=== PATIENT | female | born 1965 | race Caucasian/White ===

== ENCOUNTER → 2021-11-16 15:13 | Outpatient (BNVA) | payer OTHER, SELFPAY | PROVIDERS: Family Provider Family Medicine; PCP Family Medicine; Visit Provider Family Medicine | DX: Z00.00 Encounter for general adult medical examination without abnormal findings (principal) | CPT/HCPCS: 80053; 85025 ==

== ENCOUNTER → 2021-12-02 13:48 | Outpatient (BNVA) | payer OTHER, SELFPAY | PROVIDERS: Family Provider Family Medicine; PCP Family Medicine; Visit Provider Nurse Practitioner Women's Health | DX: Z01.419 Encounter for gynecological examination (general) (routine) without abnormal findings (principal) | CPT/HCPCS: 87624 ==

== ENCOUNTER → 2021-12-04 09:58 | Outpatient (BNVA) | payer OTHER, SELFPAY | PROVIDERS: Family Provider Family Medicine; PCP Family Medicine; Visit Provider Family Medicine | DX: Z00.00 Encounter for general adult medical examination without abnormal findings (principal) | CPT/HCPCS: 85025 ==

== ENCOUNTER 2021-12-11 10:09 | Outpatient (CLI) | payer OTHER, SELFPAY ==
--- NOTE | 2021-12-11 10:16 | MM_ITS ---
WS: [id number] BILATERAL SCREENING DIGITAL BREAST MAMMOGRAPHY WITH LEANDRO DISPLACEMENT VIEWS. CAD PERFORMED. HISTORY: SCREENING COMPARISON: 03/14/2017 and 01/13/2010 Bilateral craniocaudal and mediolateral oblique views are performed with tomosynthesis and SM. Leandro displacement views in CC and MLO projection also performed. Breasts composition: There are scattered areas of fibroglandular density. Numerous calcifications in the anterior lateral RIGHT breast are stable since 2017. No significant progression of calcification s. Breast implants are intact. No extravasation. No collapse. MM/[place] [id number] IMPRESSION: BI-RADS: 2-Benign FOLLOW-UP: 1 Year Follow-up
== END 2021-12-11 10:10 | disposition home or self-care (01) ==
LOC: RAD 10:10
PROVIDERS: PCP Family Medicine; Visit Provider Family Medicine
DX: Z12.31 Encounter for screening mammogram for malignant neoplasm of breast (principal)
CPT/HCPCS: 77063; 77067

== ENCOUNTER 2022-01-04 05:56 | Day surgery (SDC) | payer OTHER, SELFPAY ==
[2021-12-31 12:38] VITALS: BMI 26.6
[2022-01-04 06:21] VITALS: BP 94/77; PULSE 59; RESP 18; TEMP 36.1; O2SAT 98
[2022-01-04 06:31] LABS: OR HCG Qualitative Urine Negative (Negative)
[2022-01-04] MEDS: sodium chloride 0.9% 1,000 ML 30 ML IV (06:34)
--- NOTE | 2022-01-04 06:58 | P.ANESASSM_ITS ---
Pre-Anesthetic Assessment Height/Weight: Height 1.68 m Weight 74.843 kg Temp Pulse Resp BP Pulse Ox O2 Del Method 96.9 F L 59 L 18 94/77 98 01/04/22 06:21 01/04/22 06:21 01/04/22 06:21 01/04/22 06:21 01/04/22 06:21 01/04/22 06:21 Preop Diagnosis: FH Operation Date: 01/04/22 07:15 Proposed Procedures p Colonoscopy 10314,Z80.0(Not Applicable) - Arnlodo Alexandre MD Familial anesthetic complications: none Was Beta Jean Marie taken within 24 hours: N/A Was Clonidine taken within 24 hours: N/A Last intake: Intake Last Liquid Date 01/03/22 Last Liquid Time 23:00 Last Solid Date 01/02/22 Last Solid Time 19:00 Social No alcohol and No tobacco Exam alert and oriented x 3 Airway Submandibular: within normal limits Cervical ROM: within normal limits Mallampati: Class I Dentition: full History/ROS No significant complaints Anesthetic Plan ASA status: 1 Anesthesia: Anesthesia Evaluation and MAC Risk of > 500 ml blood loss (7ml/kg in children): No Medications/Allergies Home Medications Medication Instructions Recorded Confirmed Last Taken Type No Known Home Medications 12/24/19 01/04/22 Unknown History Allergies Allergy/AdvReac Type Severity Reaction Status Date / Time No Known Allergies Allergy Verified 01/04/22 06:20 Current Medications Generic Name Dose Route Start Last Admin Trade Name Freq PRN Reason Stop Dose Admin Sodium Chloride 1,000 mls @ 30 mls/hr 01/04/22 06:15 01/04/22 06:34 Sodium Chloride 0.9% IV 01/05/22 06:14 30 mls/hr .Q24H JERRI Administration PFSH Anesthesia Medical History Family hx of colon cancer requiring screening colonoscopy No pertinent past medical history neghx: htn,dm,thyroid,dvt/pe PCP: Dr. Waller Surgical History History of breast augmentation (~01/1997) 01/1997 Replacement of breast implants in 2011 History of kidney surgery (~2019) large kidney stone--- perc tube performed in [place] [facility] History of tonsillectomy and adenoidectomy (~1974) History of wisdom tooth extraction Family History Father Hypertension Diabetes Colon cancer dx age 64 Prostate cancer dx age 80's Hyperlipidemia Denies family history of Ovarian cancer Breast cancer Uterine cancer Thyroid disease Stroke Social History Smoking and tobacco status: never smoked Alcohol intake: current Alcohol intake frequency: holidays/special occasions only Data Anesthesia Cardiac Studies: No Data to Display
--- NOTE | 2022-01-04 07:49 | W.PM.OPSFHP ---
Same Day Surgery H&P Indication for Procedure/HPI DATE OF PROCEDURE: January 04, 2022 CHIEF COMPLAINT/INDICATIONFOR SURGICAL PROCEDURE: Family history of colon cancer PREOP DIAGNOSIS: FH PLANNED PROCEDURE: Operation Date: 01/04/22 07:15 Proposed Procedures p Colonoscopy 27676,Z80.0(Not Applicable) - Arnoldo Alexandre MD Medications/Allergies* Home Medications Medication Instructions Recorded Confirmed Type No Known Home Medications 12/24/19 01/04/22 History Allergies/Adverse Reactions Allergy/AdvReac Type Severity Reaction Status Date / Time No Known Allergies Allergy Verified 01/04/22 06:20 Current Medications: Generic Name Dose Route Start Last Admin Trade Name Freq PRN Reason Stop Dose Admin Sodium Chloride 1,000 mls @ 30 mls/hr 01/04/22 06:15 01/04/22 06:34 Sodium Chloride 0.9% IV 01/05/22 06:14 30 mls/hr .Q24H JERRI Administration Pertinent History/Comorbid Conditions* Medical History (Updated 12/28/21 @ 14:51 by Arnoldo Alexandre MD) Family hx of colon cancer requiring screening colonoscopy No pertinent past medical history neghx: htn,dm,thyroid,dvt/pe PCP: Dr. Waller Surgical History (Updated 12/02/21 @ 14:09 by Sherly Hair APN, LIT) History of breast augmentation (~01/1997) 01/1997 Replacement of breast implants in 2011 History of kidney surgery (~2019) large kidney stone--- perc tube performed in [facility] History of tonsillectomy and adenoidectomy (~1974) History of wisdom tooth extraction Family History (Updated 12/02/21 @ 13:37 by Johanna Mejia) Colon cancer Father dx age 64 Prostate cancer Father dx age 80's Diabetes Father Hyperlipidemia Father Hypertension Father Denies family history of Ovarian cancer Breast cancer Uterine cancer Thyroid disease Stroke Social History Smoking and tobacco status: never smoked Alcohol intake: current Alcohol intake frequency: holidays/special occasions only Pertinent Exam Findings alert, oriented x 3, clear to auscultation bilaterally, regular rate & rhythm, operative site marked and procedure specific exam findings Recommendations Surgery/Procedure today Coding Level of Care Code Acute Inspector Hot Forgings for Sang Block
[2022-01-04 08:00] VITALS: BP 119/63; PULSE 58; RESP 20; TEMP 36.6; O2SAT 98
--- NOTE | 2022-01-04 08:04 | ANE.PACU2 ---
Inpatient post-anesthesia follow up: Airway intact: Yes Vital signs: Temperature 96.9 F Pulse Rate 59 Respiratory Rate 18 Blood Pressure 94/77 Pulse Oximetry 98 Oxygen Delivery Me thod Room Air Oxygen Flow Rate Fraction of Inspir ed Oxygen Hydration adequate: Yes Nausea and vomiting: No Pain level: 1 Mental status: Baseline
[2022-01-04 08:10] VITALS: BP 105/70; PULSE 56; RESP 18; O2SAT 97
== END 2022-01-04 08:45 | disposition home or self-care (01) ==
PROVIDERS: Anesthesiology; PCP Family Medicine; Visit Provider Internal Medicine
PROC: 0DJD8ZZ Inspection of Lower Intestinal Tract, Via Natural or Artificial Opening Endoscopic (ICD-10-PCS; CPT 45378; principal; 2022-01-04 07:15)
DX: Z12.11 Encounter for screening for malignant neoplasm of colon (principal); Z80.0 Family history of malignant neoplasm of digestive organs; K57.30 Diverticulosis of large intestine without perforation or abscess without bleeding
CPT/HCPCS: 45378; 81025; 84703; J2704; J7030

== ENCOUNTER → 2024-12-04 15:14 | Outpatient (BNVA) | payer OTHER, SELFPAY | PROVIDERS: PCP Family Medicine; Visit Provider Family Medicine | DX: R10.9 Unspecified abdominal pain (principal) | CPT/HCPCS: 81000 ==